=== PATIENT | male | born 1955 | race Caucasian/White ===

== ENCOUNTER → 2024-09-05 | Outpatient (REF) | payer MEDICARE ==
[~2024-09-05] MED LIST: AMLODIPINE BESY10 MG PO; ASPIRIN81 MG PO; CLOPIDOGREL75 MG PO; ISOSORBIDE MONO20 MG PO; LORATADINE10 MG PO; METFORMIN HCL500 MG PO; MILK THISTLE PO; OMEGA 3 1,0001 EACH PO; PIOGLITAZONE HC45 MG PO; PSYLLIUM HUSK PO; VITAMIN D PO
== END ==
LOC: US 08:26
PROVIDERS: ATTEND Nurse Practitioner
DX: R10.84 Generalized abdominal pain (principal); K76.0 Fatty (change of) liver, not elsewhere classified
CPT/HCPCS: 76700; 76856